=== PATIENT | female | born 1990 | race Caucasian/White ===

== ENCOUNTER 2017-07-26 13:11 | Day surgery (SDC) | payer OTHER ==
[2017-07-26 13:49] VITALS: BP 121/68; TEMP 98.8
[2017-07-26 13:51] VITALS: BMI 35.5
[2017-07-26 14:00] LABS: Amnisure Test No Membranes Rupture (No Rupture)
--- NOTE | 2017-07-26 16:45 | PRG ---
DATE OF SERVICE: 07/26/2017 PRIMARY CLOTH BOIL OFF MACHINE OPERATOR: Dr. Dada Tobar. CHIEF COMPLAINT: Leakage of fluid. HISTORY OF PRESENT ILLNESS: The patient is a 26-year-old female with an intrauterine pregnanc y at 37 weeks who is presenting to Labor and Delivery with an episode of leakage of fluid while vomi ting. She reports that she has been nauseous and vomiting this morning and with the last episode of vomiting, she lost some clear fluid and soaked through her shorts. She states that she has been lopez ving lower abdominal discomfort and pressure in her pelvis, but denies contractions or tightening of her stomach. The patient denies vaginal bleeding or urinary urgency. She reports that she has had headache today, but has not taken anything for it. PAST MEDICAL HISTORY: Bipolar disorder, off medication. PAST SURGICAL HISTORY: Right wrist surgery. OBSTETRIC HISTORY: She has had 2 previous term uncomplicated vaginal deliveries. MEDICATIONS: vitamins and iron supplement. ALLERGIES: TISHA for which she gets a rash. SOCIAL HISTORY: Denies tobacco, alcohol, or drug use. OBSTETRIC LABORATORY DATA: Unavailable at this time. REVIEW OF SYSTEMS: Denies fever, chills or fatigue. She denies new skin problems or lesions. She denies eye pain or vision changes. She denies double vision or blurring. She denies hearing proble ms or ringing in her ears. She denies cold itching or congestion. She reports that she has had a b loody nose in this . Denies recurrent sore throats or sore throat currently. She has some breast tenderness, but denies any lumps or discharge. She denies cough or shortness of breath. De nies chest pain. She reports some nausea and vomiting. Denies any diarrhea or constipation. She d enies any urgency or hematuria. She denies any back pain or joint pain. The patient has headache c urrently. Denies any history of seizures or tremors. PHYSICAL EXAMINATION: VITAL SIGNS: Blood pressure is 121/68, temperature 98.8, pulse of 88, respiratory rate of 18. GENERAL: She appears to be in no acute distress. She is alert and oriented, cooperative and pleasa nt to interact with. HEENT: Normocephalic, atraumatic. CHEST: Clear to auscultation bilaterally. HEART: Regular rate and rhythm. ABDOMEN: Protuberant and gravid. Bowel sounds are present. There is tenderness to palpation at th e level of umbilicus and below. There is no guarding or rebound. GENITOURINARY: External genitalia was without lesions or erythema. PELVIC: Cervix is posterior dilated to 1-2 cm and thick per the nursing staff. heart tracing performed for leakage of fluid in . Baseline is noted to be in the 120 s with moderate long-term variability, positive accelerations, no decelerations. Labs performed. AmniSure test is negative. ASSESSMENT AND PLAN: The patient is a 26-year-old female with an intrauterine at 37 weeks who presented for leakage of fluid. There is no evidence of rupture of membranes at this time or l abor. The patient will be discharged to home with instructions to keep her next visit with Dr. Tobar on . She has also been given term labor precautions. Fetus has a category 1 tr acing.
== END 2017-07-26 14:29 | disposition home or self-care (01) ==
LOC: L&D/OP 13:11
PROVIDERS: ATTEND Obstetrics & Gynecology
DX: O26.893 Other specified pregnancy related conditions, third trimester (principal); O99.342 Other mental disorders complicating pregnancy, second trimester; F31.9 Bipolar disorder, unspecified; Z3A.37 37 weeks gestation of pregnancy; Z79.899 Other long term (current) drug therapy; Z88.8 Allergy status to other drugs, medicaments and biological substances; Z91.018 Allergy to other foods; Z98.890 Other specified postprocedural states
CPT/HCPCS: 84112

== ENCOUNTER 2017-08-16 05:30 | Inpatient (IN) | payer OTHER ==
[2017-08-16 06:40] VITALS: BMI 35.5
[2017-08-16] MEDS ORDERED: Lactated Ringer's 1,000 ML IV SCH ×2 (06:53)
[2017-08-16] MEDS ORDERED: Carboprost 250 MCG/ML AMP IM PRN (06:53)
[2017-08-16] MEDS ORDERED: LR 500 ML/Oxytocin 10 units 500 ML IV SCH (06:53)
[2017-08-16] MEDS ORDERED: Ibuprofen 800 MG TAB PO PRN (06:53)
[2017-08-16] MEDS ORDERED: Lidocaine 1% (PF) 30 ML VIAL SC PRN (06:53)
[2017-08-16] MEDS ORDERED: Promethazine HCl 25 MG/ML VIAL IM PRN ×3 (06:53→14:29)
[2017-08-16] MEDS ORDERED: Diphenoxylate HCl/Atropine Tablet PO PRN (06:53)
[2017-08-16] MEDS ORDERED: HYDROcodone/Acetaminophen 5/325 mg Tablet PO PRN ×3 (06:53→14:29)
[2017-08-16] MEDS ORDERED: Ondansetron HCl/PF 4 MG/2 ML Vial IVP PRN ×3 (06:53→14:29)
[2017-08-16 07:34] LABS: Mean Platelet Volume 6.7 fL (7.4-10.4); Red Blood Cell (RBC) Count 3.71 mill/uL (4.20-5.40); White Blood Cell (WBC) Count 10.1 thou/uL (4.8-10.8)
[2017-08-16] MEDS ORDERED: Fentanyl 4 mcg/Marc 0.1% Cadd 100 ML ONE (08:00)
[2017-08-16] MEDS ORDERED: Eucerin (Mineral Oil/Petrolatum,White) 30 gm Jar TOP PRN (09:25)
[2017-08-16] MEDS ORDERED: Naloxone HCl 0.4 mg/ml Vial IVP PRN ×2 (09:25)
[2017-08-16] MEDS ORDERED: diphenhydrAMINE 50 MG/ML VIAL IVP PRN (09:25)
[2017-08-16] MEDS ORDERED: Acetaminophen 325 MG TAB PO PRN (09:25)
[2017-08-16] MEDS ORDERED: ePHEDrine/0.9% NaCl/PF SYRINGE 50 mg/10 ml SLOW IVP PRN (09:25)
[2017-08-16] MEDS ORDERED: Lactated Ringer's 500 ML IV PRN (09:25)
[2017-08-16] MEDS ORDERED: Fentanyl 4mcg/Marcaine 0.1% Cassette 100 ML EPIDURAL SCH (09:30)
[2017-08-16] MEDS ORDERED: Communication Order-Pharmacy FS SCH (09:30)
[2017-08-16] MEDS: LR / Pitocin 40 units/1000 ml 1,000 ML IV PRN ×2 (12:05→13:16)
--- NOTE | 2017-08-16 12:13 | PDOC.OPDEL ---
OB Operative/Delivery Note Delivery Dr/Surgeon: Amadou jackson BV Ob Hospitalist Pre-Delivery Diagnosis: elective induction Procedure/Post Delivery Dx: spontaneous vaginal delivery Weeks gestation: 40 Anesthesia: epidural - Findings A Sex: male Weight: 0 oz (pending ) - 1 min: 9 - 5 min: 9 - Additional Findings/Plan Placenta delivered: spontaneous Repaired Obstetrical Laceration: none Estimated blood loss: 300 Compilations/Other Findings: [facility] delivery at 1201 with med student. delayed cord clamp. no laceration, correct count. Post delivery plan: routine recovery
[2017-08-16] MEDS ORDERED: Milk Of Magnesia 30 ML UDCUP PO PRN (14:29)
[2017-08-16] MEDS ORDERED: Zolpidem Tartrate 5 MG TAB PO PRN (14:29)
[2017-08-16] MEDS ORDERED: Benzocaine/Menthol 20-0.5% 60 ML CAN TOP PRN (14:29)
[2017-08-16] MEDS ORDERED: Bisacodyl 10 MG SUPP PR PRN (14:29)
[2017-08-16] MEDS ORDERED: Adacel (T-DAP) 0.5 ML VIAL IM ONE (14:29)
[2017-08-16] MEDS ORDERED: Lanolin Ointment 7 GM TUBE TOP PRN (14:29)
[2017-08-16] MEDS ORDERED: LR / Pitocin 40 units/1000 ml 1,000 ML IV SCH (14:29)
[2017-08-16] MEDS: Ibuprofen 800 MG TAB PO SCH ×2 (14:48→22:21)
[2017-08-16] MEDS: HYDROcodone/Acetaminophen 5/325 mg Tablet PO PRN ×3 (14:49→23:08)
[2017-08-16] MEDS: Ferrous Sulfate 325 MG TAB PO SCH (15:14)
[2017-08-16] MEDS: Docusate Calcium (SURFAK) 240 MG CAP PO SCH (22:19)
[2017-08-17] MEDS ORDERED: Lidocaine 2% PF 5 ML VIAL ONE (01:00)
[2017-08-17] MEDS ORDERED: Bupivacaine/Epinephrine 0.25% 30 ML VIAL ONE (01:00)
[2017-08-17] MEDS: Ibuprofen 800 MG TAB PO SCH ×2 (05:02→13:51)
[2017-08-17] MEDS: Ferrous Sulfate 325 MG TAB PO SCH (07:51)
[2017-08-17] MEDS: Docusate Calcium (SURFAK) 240 MG CAP PO SCH (08:10)
[2017-08-17] MEDS: HYDROcodone/Acetaminophen 5/325 mg Tablet PO PRN ×2 (08:11→13:51)
[2017-08-17] MEDS ORDERED: Prenatal Vitamin 1 TAB PO SCH (09:00)
[2017-08-17 11:29] VITALS: BP 136/78; TEMP 98.1
== END 2017-08-17 15:25 | disposition home or self-care (01) | DRG 775 ==
LOC: L&D 05:52 → 3SW 14:30
PROVIDERS: ADMIT Obstetrics & Gynecology; ATTEND Obstetrics & Gynecology
PROC: 10E0XZZ Delivery of Products of Conception, External Approach (ICD-10-PCS; principal; 2017-08-16)
DX: O80 Encounter for full-term uncomplicated delivery (principal); Z37.0 Single live birth; Z3A.40 40 weeks gestation of pregnancy
CPT/HCPCS: 36415; 85027; 86780; 87340; J2001; J2405; J7120

== ENCOUNTER 2017-10-02 02:04 | Emergency (ER) | payer OTHER ==
[2017-10-02 02:44] LABS: Bilirubin Negative (Negative); Blood, Urine Trace (Negative); Glucose, Urine (Dipstick) Negative (Negative); Leukocyte Moderate (Negative); Nitrite Negative (Negative); Protein, Urine (Dipstick) Negative (Neg-Trace); Specific Gravity, Urine 1.015 (1.005-1.030); Urobilinogen 0.2 mg/dL (0.2-1.0)
[2017-10-02 02:45] LABS: Bacteria/HPF 4+ HPF (None Seen); Clarity Cloudy (Clear); Hyaline Casts/LPF 0-3 HYALINE CAST LPF (0-3 Hyaline); Pathc Cast-AUWi Flag 0.67 (0-2.49); Squamous Epithelial 21-50 HPF (0-3)
[2017-10-02 02:50] LABS: Specific Gravity 1.015 (1.002-1.036)
[2017-10-02 02:53] LABS: #Eosinphils 0.2 thou/uL (0.0-0.7); #Lymphocytes 1.9 thou/uL (1.20-3.40); #Monocytes 0.4 thou/uL (0.11-0.59); #Neutrophils 3.5 thou/uL (1.40-6.50); %Basophils 0.4 % (0.0-1.0); %Eosinophils 2.9 % (0.0-10.0); %Monocytes 7.1 % (0.0-10.0); %Neutrophils 58.6 % (42.0-75.0); Hemoglobin 12.2 g/dL (12.0-16.0); Mean Corpuscular HGB CONC 32.4 g/dL (32.0-36.0); Mean Corpuscular Hemoglobin 29.2 pg (27.0-31.0); Mean Corpuscular Volume 90.2 fl (81.0-99.0); Mean Platelet Volume 6.9 fL (7.4-10.4); Platelet Count 236 thou/uL (130-400); RBC Distribution Width 12.7 % (11.5-14.5); Red Blood Cell (RBC) Count 4.17 mill/uL (4.20-5.40)
[2017-10-02 02:54] LABS: Pregnancy Test - Urine (BHCG) Negative (Negative); Pregu Control Background? CLEAR/WHITE (CLR/WHITE); Pregu Control Bar Appear? YES (CONTROL BAR)
[2017-10-02] MEDS ORDERED: Ondansetron HCl/PF 4 MG/2 ML Vial ONE ×2 (03:18→03:27)
[2017-10-02] MEDS ORDERED: Acetaminophen 325 MG TAB ONE (03:18)
[2017-10-02 03:35] LABS: ALT (SGPT) 28 U/L (8-55); AST (SGOT) 19 U/L (5-34); Albumin 3.5 g/dL (3.5-5.0); Alkaline Phosphatase 80 U/L (40-150); Anion Gap 14 mmol/L (10-20); BUN (Urea Nitrogen) 8 mg/dL (7.0-18.7); Bilirubin, Total Less than 0.2 mg/dL (0.2-1.2); Calc. Creatinine Clearance 0 mL/min (70-130); Calcium 8.7 mg/dL (7.8-10.44); Carbon Dioxide 24 mmol/L (22-29); Chloride 106 mmol/L (98-107); Estimated GFR-MDRD Greater than 90; Globulin 2.5 g/dL (2.4-3.5); Glucose 105 mg/dL (70-105); Lipase 23 U/L (8-78); Potassium 3.7 mmol/L (3.5-5.1); Sodium 140 mmol/L (136-145)
== END 2017-10-02 04:46 | disposition home or self-care (01) ==
LOC: ERS 02:04
DX: N39.0 Urinary tract infection, site not specified (principal); F41.9 Anxiety disorder, unspecified; F31.9 Bipolar disorder, unspecified
CPT/HCPCS: 36415; 80053; 81003; 81015; 81025; 83690; 85025; 96361; 96374; 96375; J0696; J2405

== ENCOUNTER 2018-01-12 16:00 | Emergency (ER) | payer OTHER | END 2018-01-12 16:41 | disposition left against medical advice (07) | LOC: ERS 16:00 | DX: Z53.21 Procedure and treatment not carried out due to patient leaving prior to being seen by health care provider (principal) ==